=== PATIENT | male | born 1965 | race Caucasian/White ===

== ENCOUNTER 2018-05-05 17:35 | Emergency (ER) | payer MEDICARE, MEDICAID ==
[~2018-05-05] VITALS: Ht 190.5 cm; Wt 87.8 kg
[2018-05-05 17:38] VITALS: BP 156/92
== END 2018-05-05 19:35 | disposition home or self-care (01) ==
LOC: ED 19:00
DX: J00 Acute nasopharyngitis [common cold] (principal); J20.8 Acute bronchitis due to other specified organisms; B96.89 Other specified bacterial agents as the cause of diseases classified elsewhere
CPT/HCPCS: 36415; 71046; 86308; 99285